=== PATIENT | female | born 1960 | race Caucasian/White ===

== ENCOUNTER 2023-04-09 12:39 | Emergency (ER) | payer OTHER ==
[2023-04-09 12:52] VITALS: RESP 18; BMI 30.9
[2023-04-09 16:06] LABS: BASO % 0.7 % (0-2.0); EOS % 2.3 % (0-4.5); HEMATOCRIT 23.4 % (32.4-45.2); HEMOGLOBIN 7.4 GM/dL (10.7-15.3); LYMPH % 37.1 % (8-40); MCH 24.4 pg (25.7-33.7); MCHC 31.4 g/dl (32.0-36.0); MEAN CELL VOLUME 77.8 fl (80-96); MEAN PLT VOLUME 7.6 fl (7.5-11.1); MONO % 7.3 % (3.8-10.2); NEUT % 52.6 % (42.8-82.8); PLATELET COUNT 481 10^3/uL (134-434); RBC 3.01 M/mm3 (3.60-5.2); RDW 17.4 % (11.6-15.6)
[2023-04-09 16:21] LABS: POTASSIUM 4.8 mmol/L (3.5-5.1)
[2023-04-09 16:24] LABS: ALBUMIN 3.4 g/dl (3.4-5.0); BLOOD UREA NITROGEN 30.8 mg/dL (7-18); MAGNESIUM 1.9 mg/dL (1.8-2.4)
[2023-04-09 16:27] LABS: CREATININE 1.2 mg/dL (0.55-1.3)
[2023-04-09 16:29] LABS: BILIRUBIN,TOTAL 0.2 mg/dL (0.2-1); TOT PROT 7.6 g/dl (6.4-8.2)
[2023-04-09 18:59] VITALS: BP 144/54; PULSE 70; TEMP 99
== END 2023-04-09 19:11 | disposition home or self-care (01) ==
LOC: JER 12:39
DX: R07.9 Chest pain, unspecified (principal); R50.9 Fever, unspecified; R53.83 Other fatigue; R06.00 Dyspnea, unspecified; R05.9 Cough, unspecified; Z20.822 Contact with and (suspected) exposure to COVID-19
CPT/HCPCS: 0241U-QW; 36415; 71046-TC-FY; 80053; 82272; 83735; 84484; 85025; 93005; 93010; 99285-25